=== PATIENT | female | born 1980 | race African-American/Black ===

== ENCOUNTER 2017-07-24 14:43 | Emergency (ER) | payer OTHER ==
[~2017-07-24] VITALS: Ht 167.6 cm; Wt 63.5 kg
[~2017-07-24 14:43] MED LIST: HYDROCODON-ACE1 EAC7 PO; IBUPROFEN 600600 M1 PO; KEFLEX500 MG PO; NORCO 5-325 TA1 EACH PO; PERCOCET 5-3251 EACH PO; ZOFRAN4 MG PO
[2017-07-24 14:45] VITALS: BP 118/73
[2017-07-24 15:16] LABS: HEMATOCRIT 38.5 % (37.0-47.0); HEMOGLOBIN 12.7 gm/dL (12.0-15.0); MCH 27.9 pg (26.0-34.0); MCHC 33.1 g/dL (28.0-37.0); MCV 84.5 fL (80.0-100.0); RBC 4.55 mil/uL (4.20-5.00); WBC 7.1 thou/uL (4.0-11.0)
[2017-07-24 15:23] LABS: CREATININE 0.9 mg/dL (0.6-1.0); POTASSIUM 3.5 mmol/L (3.5-5.1)
[2017-07-24 15:24] LABS: MAGNESIUM 2.2 mg/dL (1.8-2.4)
[2017-07-24] MEDS ORDERED: PREDNISONE 20 M20 MG PO (15:31)
== END 2017-07-24 15:50 | disposition home or self-care (01) ==
LOC: ER 14:43
PROVIDERS: Physician Assistant
DX: G51.0 Bell's palsy (principal); R20.2 Paresthesia of skin